=== PATIENT | male | born 1945 | race Caucasian/White ===

== ENCOUNTER 2017-02-19 16:29 | Observation (INO) | payer MEDICARE ==
[~2017-02-19] VITALS: Ht 177.8 cm; Wt 83.8 kg
[2017-02-19 16:39] VITALS: BP 160/75; PULSE 55; RESP 15; O2SAT 96
--- NOTE | 2017-02-19 16:54 | ED.REPORT ---
HPI-Chest Pain 40 and Over Date of Service Feb 19, 2017 ED Provider: Dr. Braxton Pt is a 71 y/o male w/ a hx of CAD s/p stentings, HTN, HLD, GERD, prior DVT, prostate CA s/p prostatectomy, presenting to the ED c/o intermittent chest discomfort onset 1 month ago. The patient has been experiencing intermittent burning chest pain which seems to be brought on with exertion. This has been apparently worked up by multiple physicians including a senior sharepoint architect for non- cardiac causes up until today. The last episode of chest pain was 2 days ago lasting about 30 seconds. During these episodes he experiences dyspnea but no diaphoresis. He went to his PCP in [facility] today and was prescribed nitroglycerin. They performed labs which were remarkable for an elevated CK-MB of 507 with a negative troponin and was called to come to the ED for a cardiac workup. He has been experiencing weakness, fatigue, and depression as well which he has been treated with his own purchased magnesium pills which seem to relieve his symptoms. He lives by himself. He does have a significant family history of sudden in his son and cardiac in his father. He is not the best historian. Nursing Notes Stated Complaint: CHEST PAIN Chief Complaint: Chest Pain Nursing Notes Reviewed: Yes Allergies: Coded Allergies: Nomrzqa-Xpt-Gdm Reductase Inhibitor (Unverified Allergy, Mild, 02/19/17) Scheduled ([brain force]) 1 CAPSULE PO DAILY Aspirin (Aspirin) 81 Mg Tablet 81 MG PO QAM Ezetimibe (Ezetimibe) 10 Mg Tablet 10 MG PO DAILY Fluticasone Propionate (Fluticasone Propionate) 50 Mcg/Actuation [place].susp 2 SPRAYS NS QAM Hydrochlorothiazide (Hydrochlorothiazide) 25 Mg Tablet 25 MG PO QAM Krill/Om3/Dha/Epa/Om6/Lip/Astx (Krill Oil 1,000 mg Softgel) 1 Each Capsule 1 EACH PO DAILY Omeprazole (Omeprazole) 20 Mg Capsule.dr 20 MG PO BID Scheduled PRN Magnesium Amino Acid Chelate (Magnesium) 100 Mg Tablet 1,050 MG PO DAILY PRN PRN For Spasm Nitroglycerin SL (Nitroglycerin SL) 0.4 Mg Tab.subl 0.4 MG SL Q5MIN PRN PRN For Chest Pain General Time Seen by MD: 16:54 Chief Complaint Chest pain Hx Obtained From: Patient Arrived By: Walk-in Sudden in Onset?: Yes Onset Occurred: More than a week ago... 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 Physical Exam Initial Vital Signs Vital Signs (First) Date Time Temp Pulse Resp B/P Pulse Ox O2 Delivery O2 Flow Rate FiO2 02/19/17 16:39 36.5 55 15 160/75 96 Room Air Initial VS: Reviewed, Vital signs abnormal Head / Eyes: Atraumatic, Normocephalic ENT: Mucous membranes moist, Conjunctiva normal Neck: Full range of motion Extremities: Vascular intact, Neuro intact, No swelling Skin: Warm, Dry, No cyanosis Neurologic: Alert, Oriented, Nonfocal Psychiatric: Mood/affect normal, Behavior normal, Normal thought content General/Constitutional: Awake, Alert, No acute distress, Well appearing, Cooperative, Not toxic appearing Respiratory / Chest: Breath sounds NL, Breath sounds = bilat, No respiratory distress, No rales, No rhonchi, No wheezing, No stridor, No chest tenderness Cardiovascular: Heart rate NL, Regular rhythm, Heart sounds NL, No gallop, No murmurs, No rubs Abdomen: Soft, Non-tender, No guarding, No rebound, No distention Interpretation & Diagnostics Lab Results Interpretation Result Diagram: 02/19/17 1649 02/19/17 1649 Test 02/19/17 16:49 02/19/17 17:23 White Blood Count 8.0th/mm3 (3.8-10.1) Red Blood Count 4.74mil/mm3 (4.40-5.80) Hemoglobin 15.0g/dL (13.8-17.2) Hematocrit 43.7% (41.0-50.0) Mean Corpuscular Volume 92.2fL (81-100) Mean Corpuscular Hemoglobin 31.6pg (27.0-35.0) Mean Corpuscular Hemoglobin Concent 34.3% (32.0-37.0) Red Cell Distribution Width 14.4% (12.3-15.4) Platelet Count 251bil/L (150-400) Neutrophils (%) (Auto) 63.1% (40-74) Lymphocytes (%) (Auto) 18.3% (14-46) Monocytes (%) (Auto) 10.9% (4-12) Eosinophils (%) (Auto) 6.0% (0-5) Basophils (%) (Auto) 1.4% (0-3) Sodium Level 139mEq/L (134-144) Potassium Level 3.6mEq/L (3.5-5.2) Chloride Level 100mEq/L (97-108) Carbon Dioxide Level 24mmol/L (18-29) Blood Urea Nitrogen 17mg/dL (8-27) Creatinine 1.08mg/dL (0.76-1.27) Estimat Glomerular Filtration Rate 72mL/min (>59) Glucose Level 103mg/dL (60-99) Calcium Level 9.1mg/dL (8.5-10.1) Magnesium Level 2.3mg/dL (1.6-2.6) Total Bilirubin 0.4mg/dL (0.0-1.2) Aspartate Amino Transf (AST/SGOT) 28U/L (0-50) Alanine Aminotransferase (ALT/SGPT) 17U/L (0-44) Alkaline Phosphatase 67U/L (25-160) Troponin T 0.013ug/L (0.0-0.011) Total Protein 8.0g/dL (6.4-8.4) Albumin 4.5g/dL (3.4-5.0) Hold Oconnell Top Tube Received (Received) ECG Interpretation ECG Interpretation: Sinus rhythm rate 51 LBBB No prior available for comparison Time: 18:01 Interpreted by: ED physician X-Ray Chest Interpretation Chest Xray Interpretation: IMPRESSION: 1. No acute cardiopulmonary disease. Dictated by: Júnior Tomlinson M.D. on 02/19/2017 at 17:05 Approved by: Júnior Tomlinson M.D. on 02/19/2017 at 17:09 View: Portable, 1 view Interpretation / Wet Read by: Interpret - Radiologist Re-Eval/Medical Decision Med Decision/Clinical Course 71-year-old male somewhat difficult historian with a known history of coronary disease recent exertional chest pain in an indeterminate troponin. Also has a left bundle branch block. Presently asymptomatic, plan is to follow troponins in the hospital and hopefully have an expedited stress test. Source of Hx: Old records Time of Eval: 18:34 Re-Evaluation/Progress Note: Pt rechecked. Informed pt of need for admission for cardiac workup. Pt understands and agrees with need for admission. All questions addressed. CODE STATUS: FULL CODE Consultation : Referral / Consult Name: Juliana Hope DO Consulted With: Hospitalist Call Returned at: 19:37 Managing Editor: Will see patient, Agrees with eval, Agrees with plan, Accepts admit Counseled Regarding: Diagnosis, Lab results, Need for admission Discharge & Departure Primary Impression: Chest pain with moderate risk for cardiac etiology Disposition: ADMITTED TO HOSPITAL Discharge Condition All VS Reviewed: Yes Condition: Stable Scribe Attestation Portions of this note were transcribed by Sher Akbar. I, Dr. Braxton personally performed the history, physical exam and medical decision-making; I reviewed and confirmed the accuracy of the information in the transcribed note. Flash Braxton MD Feb 19, 2017 16:54 SHER AKBAR Feb 19, 2017 17:00
[2017-02-19 16:56] LABS: BASOPHILS % (AUTO) 1.4 % (0-3); MONOCYTES % (AUTO) 10.9 % (4-12); Mean Corpuscular Hemoglobin 31.6 pg (27.0-35.0); Mean Corpuscular Volume 92.2 fL (81-100); NEUTROPHILS % (AUTO) 63.1 % (40-74); Platelet Count 251 bil/L (150-400)
--- NOTE | 2017-02-19 17:11 | DRSVH ---
PROCEDURE: X-RAY CHEST ONE VIEW, PORTABLE ([id number]) INDICATIONS: cp TECHNIQUE: One view of the chest was acquired. COMPARISON: None. FINDINGS: Surgical changes and devices: None. Lungs and pleura: Mild bilateral interstitial dominance, worse in lower lobes. No pleural effusions o r pneumothorax. Mediastinum: Mediastinal contours appear normal. Heart size is normal. Bones and chest wall: No suspicious bony lesions. Overlying soft tissues appear unremarkable. IMPRESSION: 1. No acute cardiopulmonary disease. Dictated by: Júnior Tomlinson M.D. on 02/19/2017 at 17:05 Approved by: Júnior Tomlinson M.D. on 02/19/2017 at 17:09
[2017-02-19 17:17] LABS: TROPONIN T 0.013 ug/L (0.0-0.011)
[2017-02-19 17:28] LABS: Magnesium 2.3 mg/dL (1.6-2.6)
[2017-02-19 18:41] VITALS: BP 174/85; PULSE 58; RESP 18; O2SAT 95
[2017-02-19] MEDS ORDERED: EZET10TA27 PO (19:43)
[2017-02-19] MEDS ORDERED: NITR0.4T6 SL (19:43)
[2017-02-19] MEDS ORDERED: Alum-Mag Hydrox-Simeth 30 mL Suspension PO PRN ×2 (19:45→20:05)
[2017-02-19] MEDS ORDERED: Ondansetron 2 mg/mL 2 mL Inj IVPUSH PRN ×2 (19:45→20:05)
[2017-02-19] MEDS ORDERED: HYDR25TA4 PO (19:46)
[2017-02-19] MEDS ORDERED: FLUT15.88 NS (19:46)
[2017-02-19] MEDS ORDERED: OMEP20CA11 PO (19:46)
[2017-02-19] MEDS ORDERED: ASPI-973 PO (19:46)
[2017-02-19] MEDS ORDERED: MAGN400T4 PO (19:50)
[2017-02-19] MEDS ORDERED: Polyethylene Glycol (PEG) 17 Gm Powder PO PRN (20:05)
[2017-02-19] MEDS ORDERED: MAGN100T5 PO (20:27)
[2017-02-19] MEDS ORDERED: KRIL1CAP PO (20:28)
[2017-02-19] MEDS ORDERED: [UNRECOGNIZED DRUG - OTHER] PO (20:29)
--- NOTE | 2017-02-19 20:35 | PCM.HPMED ---
Subjective Date of Service Feb 19, 2017 Primary Provider: Admitting Physician: Jax Lam MD Primary Care Physician: Get Calvillo MD Attending Physician: Jax Lam MD Admit Status: From the Emergency Department, Remote Telemetry Chief Complaint: chest pain History of Present Illness: Mr. Gaffney is a pleasant 71-year-old gentleman with a history of coronary artery disease status post stent placement, hyperlipidemia, hypertension, obstructive sleep apnea, history of prostate cancer s/p prostatectomy, and DVT of left leg, that presented to the emergency department as a transfer from his primary care for further evaluation of ongoing chest pain, with laboratory evidence of elevated CK-MB. He was admitted under observation status for further evaluation and treatment of his symptoms. - Hospital day 1 Mr. Gaffney states that he has been experiencing intermittent chest pain over the recent month, with increasing in frequency and severity over the latter half. He states that he has actually been chest pain-free over the recent week, and actually feels better today than previous days. The pain he was previously experiencing is described as an intermittent burning sensation, frequently associated with exertion. He denies any associated fever, chills, diaphoresis, acute vision changes, nausea, abdominal pain, headaches, dysphasia, or radiation into the neck or extremities. He states that his pain has been relieved quite well through the use of absorbable magnesium tablets, of which, he reports he takes approximately 15 pills per day. He does not have the supplementation with him at time of admission, cannot recall the exact dosage. At time of admission, he denies any recurrence of his chest pain or ongoing symptoms. Documentation received from the [facility] dated 02/19/2017 reveals the patient initially presented for a Medicare annual wellness visit and chronic care evaluation. During that visit, the patient was describing a sensation of fatigue and burning across his chest has been occurring over the recent month, with the sensation lasting 2-3 minutes and then spontaneously resolving. Per documentation, the patient described his symptoms more as "depression, weakness , and fatigue," rather than a chest pain or pressure typically described cardiac events. Laboratory results obtained through the outpatient clinic revealed an elevated CK-MB at 507 (range: 24-195) and CK-MB fraction 8.7 (range: 0.0-8.0). In the ED, patient states that he was completely asymptomatic. Initial vitals revealed T 36.5, pulse 55, are 15, BP 160/75, 96% on room air; initial labs showed no evidence of anemia, white count 8.0, blood joints within range, including magnesium at 2.3, LFTs within range, initial troponin T 0.013, glucose 103; EKG obtained rate of 51 in normal sinus rhythm with evidence of a left bundle branch block which has been reported to be chronic; CXR did not reveal any acute cardiopulmonary disease. No therapies were needed in the emergency department, as patient was asymptomatic. Patient was transferred to medical floor in stable condition. Review of Systems: Complete review of systems obtained, pertinent positives and negatives as noted in history of present illness Allergies Coded Allergies: Qadirhj-Dvv-Pao Reductase Inhibitor (Unverified Allergy, Mild, 02/19/17) Home Medications List obtained from documentation provided by the [facility]: Nitroglycerin 0.4 mg sublingual as needed for chest pain or shortness of breath Hydrochlorothiazide 25 mg tablets 1 tab daily Flonase daily Omeprazole 20 mg twice daily Zetia 10 mg daily Vitamin B12 Probiotic Fish oil Iron with unspecified milligrams Lisinopril 20 mg daily PMH Per documentation received from [facility]: Prostate cancer status post prostatectomy Left lower extremity DVT Acid reflux Hypercholesterolemia Hypertension Obstructive sleep apnea CAD s/p stent placement Surgical History Unspecified cardiac stent placement Colonoscopy Umbilical hernia repair with mesh Left knee replacement Prostatectomy secondary to prostate cancer Family History Patient reports extensive family history of coronary artery disease including grandparents and other extended members; also states history of early age onset stroke Patient denies any personal or family history of diabetes Social History 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 Hx Alcohol Use: Yes (infrequent) Hx Substance Use: Yes (extremely distant history of illicit substance use including cocaine, other IVDU) Smoking Status: Former Smoker (quit approximately 10 years ago; both inhalation and chew) Living Arrangement: Alone Exam Vital Signs Vital Sign - Last Date Time Temp Pulse Resp B/P Pulse Ox O2 Delivery O2 Flow Rate FiO2 02/19/17 18:41 58 18 174/85 95 02/19/17 16:39 36.5 Room Air Exam General: Alert and oriented 3; pleasant gentleman resting supine in bed in no acute distress HEENT: Atraumatic, normocephalic, sclera anicteric, membranes moist Neck: Full range of motion without pain Cardiac: Regular rate and rhythm at time of examination without any appreciable murmurs Respiratory: Equal airflow all coffey without any wheeze or rhonchi Abdomen: Soft, nontender, nondistended Extremities: No edema appreciated Skin: Warm and dry MSK: 5/5 strength 4/4 extremities at major joints of the shoulder, hip Neuro: Cranial nerves II-XII grossly intact, speech without slur, facial expressions equal and symmetric Psych: Appropriate mood, affect, and responses to questions; good insight and judgment Lab and Diagnostics Result Diagram: 02/19/17 1649 02/19/17 164 Assessment & Plan Mr. Gaffney is a pleasant 71-year-old gentleman with a history of coronary artery disease status post stent placement, hyperlipidemia, hypertension, obstructive sleep apnea, history of prostate cancer s/p prostatectomy, and DVT of left leg, that presented to the emergency department as a transfer from his primary care for further evaluation of ongoing chest pain, with laboratory evidence of elevated CK-MB. He was admitted under observation status for further evaluation and treatment of his symptoms. - Hospital day 1 Elevated cardiac enzymes, chronicity unknown, present on admission, under evaluation - Per outside documentation: CK-MB elevated at 507 - In ED, initial troponin 0.013 - Initial EKG revealed normal sinus rhythm with evidence of left bundle branch block, no acute ST T changes noted - We will trend troponin overnight + repeat CKMB - EKG in a.m. - Stress test in a.m.; nothing by mouth at midnight and hold appropriate medications - Morphine as needed - Initiate cardiac medications including beta blockade, daily aspirin; no patient has allergy to statins Chest pain, chronic, not present on admission, monitor - Patient states history of chest pain or the recent month, with resolution in the recent days - Was concern of elevated CK - We will continue to monitor; manage as above - Labs: thyroid, electrolytes, cardiac markers Restless leg syndrome, chronic, presumed stable - Patient reports "awful" leg cramps that keep him awake at night - Patient reports significant magnesium supplementation, but is unable to recall dosages - We will provide our magnesium while he is hospitalized, but patient is certainly welcome to bring his own supplementations to send pharmacy HTN, chronic, presumed stable - resume home medications when appropriate after reconciliation completed and as appropriate with pending stress test - enalapril 2.5mg IV push prn elev BP readings Hyperlipidemia, chronic, presumed stable - Lipid panel from [facility] dictated 02/13/2017: Total cholesterol 232, LDL 162, HDL 58, triglycerides 61 - Continue home zetia when appropriate PRN fever, bowel, nausea, pain Diet: Heart healthy; nothing by mouth at midnight 02/20/2017 GI: H2B DVT: Hep q8 Code: FULL CODE Patient status: Due to the severity of the same symptoms, risk of adverse events , and likely course of care, patient admitted as observation status with anticipated length of stay not exceeding 2 midnight Pain Evaluation: Adequate Pain Control GI Prophylaxis: H2 liliana VTE Prophylaxis: Sub-Q Heparin (Unfractionated) Resuscitation Status: CPR: Attempt Resuscitation Attending Statement The patient was seen and examined together with Dr. Hope on 02/19 and I agree with the history, exam and plan as outlined in the note above. Juliana Hope DO Feb 19, 2017 20:35 Jax Lam MD Feb 20, 2017 02:54
[2017-02-19 20:36] VITALS: BP 190/97; PULSE 51; RESP 18; O2SAT 96
[2017-02-19] MEDS ORDERED: Enalaprilat 1.25 mg/mL 2 mL Inj IVPUSH PRN (20:50)
[2017-02-19] MEDS ORDERED: MAGNESIUM AMINO ACID CHELATE PO PRN (21:00)
[2017-02-19 21:10] LABS: APPEARANCE,URINE CLEAR (CLEAR,HAZY); COLOR,URINE YELLOW (YELLOW); OCCULT BLOOD,URINE NEGATIVE (NEGATIVE); PH,URINE 7.5 (5.0-8.0); UROBILINOGEN,URINE NORMAL (NORMAL)
[2017-02-19] MEDS: Magnesium Chloride SR 64 mg ER24 Tablet PO SCH (21:51)
[2017-02-19 23:57] LABS: Creatine Kinase 304 U/L (21-232)
[2017-02-20] MEDS: Heparin 5,000 Unit/mL Inj SUBQ SCH ×3 (00:20→17:31)
[2017-02-20 00:23] VITALS: BP 145/75; PULSE 49; RESP 18; O2SAT 97
[2017-02-20 03:03] LABS: EOSINOPHILS % (AUTO) 10.1 % (0-5); MONOCYTES % (AUTO) 14.3 % (4-12); Mean Corpuscular Volume 91.1 fL (81-100); NEUTROPHILS % (AUTO) 54.3 % (40-74); Platelet Count 252 bil/L (150-400)
[2017-02-20 03:47] LABS: Magnesium 2.2 mg/dL (1.6-2.6); Phosphorus 2.9 mg/dL (2.5-4.9)
--- NOTE | 2017-02-20 05:51 | NUR ---
Admit to room 3016 @ 21:30 with chest pain. VS Hypertensive 160/75 sating 96% on RA. Pain 0/10, oriented to room and POC on whiteboard. no slip socks on for safety, home meds in pharmacy.
--- NOTE | 2017-02-20 05:53 | NUR ---
Med Rec completed by admit nurse Julia Cárdenas.
[2017-02-20 06:07] VITALS: PULSE 47
[2017-02-20 06:32] VITALS: BP 150/83; PULSE 49; RESP 18; O2SAT 94
[2017-02-20] MEDS ORDERED: LORazepam 1 mg Tablet PO PRN (07:55)
[2017-02-20] MEDS ORDERED: LORazepam 1 mg Tablet PO ONE (07:55)
[2017-02-20] MEDS: Magnesium Chloride SR 64 mg ER24 Tablet PO SCH (08:18)
[2017-02-20 09:26] VITALS: BP 136/77; PULSE 52; RESP 18; O2SAT 97
--- NOTE | 2017-02-20 10:16 | NUR ---
Case Management: REY given and explained. Felisha STEWART,RN
--- NOTE | 2017-02-20 11:51 | PCM.PNMED ---
Subjective Date of Service Feb 20, 2017 Subjective pt was restless this AM, anxious to go home, agreed on stress test, Has been bradycardic less than 50s, denied chest pain or lightheadedness no report on high degree blocks or pauses Exam Vital Signs Vital Sign - Last Date Time Temp Pulse Resp B/P Pulse Ox O2 Delivery O2 Flow Rate FiO2 02/20/17 09:26 36.6 52 18 136/77 97 Room Air Intake and Output 02/19/17 02/19/17 02/20/17 Cumulative From/Thru 15:00 23:00 07:00 02/19/17 16:39 - 02/19/17 20:36 Intake Total 0 ml 0 ml Balance 0 ml 0 ml Intake Oral 0 ml 0 ml Exam NAD, comfortably laying down on the bed no JVD, MMM, no LAD RRR, nl s1, s2 no mrg CTAB, no w,c S,ND,NT,normoactive BS+ warm, no edema, pulses 2/2 IVs and Medications Medications Reviewed: Medications were reviewed in detail Lab and Diagnostics Result Diagram: 02/20/17 0248 02/20/17 0248 Assessment & Plan Mr. Gaffney is a pleasant 71-year-old gentleman with a history of coronary artery disease status post stent placement, hyperlipidemia, hypertension, obstructive sleep apnea, history of prostate cancer s/p prostatectomy, and DVT of left leg, that presented to the emergency department as a transfer from his primary care for further evaluation of ongoing chest pain, with laboratory evidence of elevated CK-MB. He was admitted under observation status for further evaluation and treatment of his symptoms. acute, active Acute onset intermittent chest discomfort for, generalized weakness, POA, lab confirmed positive troponin and CK, EKG showed LBBB(reportedly old), concerning given hx of CAD 5yrs s/p stent, no close FU with card -stress test today, -nitro prn for acute CP -BB not given due to bradycardia, continue ASA, pt is allergic to statin, continue Zetia -consider card consult based on stress test today -[facility] [place] [facility] cardiac [facility] Sinus bradycardia, POA, concerning for sick sinus with possible ischemic event, monitor on telemetry for possible high degree blocks, pauses. chronic, stable Restless leg syndrome, chronic, presumed stable - Patient reports "awful" leg cramps that keep him awake at night - Patient reports significant magnesium supplementation, but is unable to recall dosages - We will provide our magnesium while he is hospitalized, but patient is certainly welcome to bring his own supplementations to send pharmacy HTN, chronic, presumed stable - resume home medications when appropriate after reconciliation completed and as appropriate with pending stress test - enalapril 2.5mg IV push prn elev BP readings Hyperlipidemia, chronic, presumed stable - Lipid panel from [facility] dictated 02/13/2017: Total cholesterol 232, LDL 162, HDL 58, triglycerides 61 - Continue home zetia when appropriate PRN fever, bowel, nausea, pain Diet: Heart healthy; nothing by mouth at midnight 02/20/2017 GI: H2B DVT: Hep q8 Code: FULL CODE Patient status: likely today or tomorrow GI Prophylaxis: H2 liliana VTE Prophylaxis: Sub-Q Heparin (Unfractionated) VTE Mechanical Devices: Venous Foot Pump Resuscitation Status: CPR: Attempt Resuscitation Time spent 35 minutes Uma Dietrich MD Feb 20, 2017 11:46
--- NOTE | 2017-02-20 12:40 | NUR ---
OFF UNIT Pt off unit to stress test, certified master safe technician aware. Addendum: 02/20/17 at 1524 by DELGADO CHAUDHARI RN Pt back on unit at 1500, Sweepery put back on, bus monitor aware.
--- NOTE | 2017-02-20 15:47 | DRSVH ---
PROCEDURE: 1 DAY PHARMACOLOGICAL STRESS TEST Rest and pharmacological stress myocardial perfusion SPECT with gated imaging and ejection fraction RADIOPHARMACEUTICAL: 8.9 mCi Tc-99m tetrafosmin IV at rest and 24.8 mCi Tc-99m tetrafosmin IV at peak effect of pharmacological stress. A hdx-nqu-whugzyve was performed. INDICATIONS: CHEST PAIN TECHNIQUE: Radiopharmaceutical was injected at peak stress test, and also at rest. SPECT images wer e obtained. SPECT myocardial perfusion images were displayed in short axis, horizontal long axis, an d vertical long axis views. Gated images were reviewed using [employer] software. COMPARISON: None. CARDIAC STRESS: A pharmacologic stress test was performed under the supervision of an attending staff, using an infus ion of [employer]. Hemodynamic data: There is normal blood pressure and heart rate response to pharmacologic stress. Symptoms: The patient denied anginal chest pain. Aminophylline: Not given EKG: No diagnostic changes of ischemia; rare PVCs are present. Left bundle branch block is present. FINDINGS: Raw data: There is good myocardial uptake of radiotracer. No significant motion artifacts. Left ventricle function: Gated images demonstrate diffuse hypokinesis of the left ventricle. No bravo sient ischemic dilation visually. Left ventricle resting end diastolic volume is 130 mL. Left ventr icle stress ejection fraction is 39%; normal range is above 45%. Myocardial perfusion: There is a small fixed defect of perfusion seen on both stress and rest images within the apex. There is otherwise normal distribution of activity in the right and left ventricula r myocardium. No fixed or reversible perfusion defects. IMPRESSION: 1. Small apical infarct versus apical thinning. 2. No reversible perfusion defects to indicate myocardial ischemia. 3. Diffusely hypokinetic left ventricle with ejection fraction of 39%. Dictated by: Stanislaw Chaudhry M.D. on 02/20/2017 at 15:42 Approved by: Stanislaw Chaudhry M.D. on 02/20/2017 at 15:46
[2017-02-20 17:47] VITALS: BP 151/77; PULSE 61; RESP 18; O2SAT 97
--- NOTE | 2017-02-20 18:01 | NUR ---
Activity/pain Pt up ind in room, tolerating activity well with no c/o CP/SOB or distress. Tele remains in place. Bed in lowest, locked position and call light in reach.
[2017-02-20 19:51] VITALS: BP 151/71; PULSE 64; RESP 18; O2SAT 98
[2017-02-21] MEDS: Heparin 5,000 Unit/mL Inj SUBQ SCH ×2 (01:31→09:32)
[2017-02-21 03:54] VITALS: BP 139/74; PULSE 50; RESP 16; O2SAT 99
[2017-02-21 06:13] VITALS: PULSE 54
--- NOTE | 2017-02-21 06:37 | NUR ---
Uneventful Night Pt denies chest pain or pressure, denies n/v/SOB/Fever/chills. Tele: SR to SR 60S to 48. BP stable. Sleeping most of night comfortably.
[2017-02-21 09:06] VITALS: PULSE 60
[2017-02-21] MEDS ORDERED: LISI10TA PO (09:28)
[2017-02-21] MEDS ORDERED: METO25TA6 PO (09:28)
[2017-02-21] MEDS: Magnesium Chloride SR 64 mg ER24 Tablet PO SCH (09:31)
[2017-02-21 09:39] VITALS: BP 130/74; PULSE 60; RESP 16; O2SAT 96
--- NOTE | 2017-02-21 12:26 | NUR ---
Social Work: Initial Assessment Data: See initial assessment. Patient is a 71 year old male who was admitted on 02/19/17 for chest pain per H&P. Patient's insurance is Medicare Complete HMO and PCP is Dr. Get Calvillo. EMR reviewed. SW met with patient to discuss discharge planning. SW role explained. Patient is alert & oriented x3. Patient resides at home alone in [place] in a home that has 10 steps at entrance. Patient remains I with ADLs. Patient states that he does drive and has a POV. Patient states that he [facility] Patient states that he has also received outpatient PT while living in [place], [place]. Patient denies having residential care insurance. Patient denies having a DPOA or AD. SW offered patient AD resources however, patient has declined. Patient states that he does have VA benefits but states that he is unable to utilize them due to living too far from a major city. Patient states that upon discharge, he will drive himself home. SW provided a discharge planning checklist booklet to pt and encouraged him to call with any questions. Phone number provided. SW will continue to follow. Assessment: Home with no needs at this time. Plan: Patient to likely discharge home when medically stable. No anticipated DC needs at this time. SW will continue to follow. MIRTHA Tafoya Addendum: 02/21/17 at 1238 by NELSON GARZON SS Amended: Links added.
--- NOTE | 2017-02-21 12:46 | DRSVH ---
[facility] [address] [place] [address] Echocardiogram Report Name: JAMIE IVY Roberto e: 02/21/2017 Height: 70 in Hospital Exam Location: [facility] Weight: 185 lb Gender: Male BSA: 2.0 m2 : 1945 Age: 71 yrs BP: 139/74 mmHg Reason For Study: Chest pain Ordering Physician: Performed By: Shakira Gary Interpretation Summary 1. Normal left ventricular size with mild proximal septal thickening and normal systolic function with an estimated EF of 55 to 60% 2. Normal right ventricular size and systolic function. The estimated right atrial pressure is low. 3. No evidence for significant valvular pathology There is no old study for comparison Procedure: A two-dimensional transthoracic echocardiogram with color flow and Doppler was performed. The study quality was technically adequate. There is no prior echocardiogram noted for this patient. The patient was in normal sinus rhythm during the exam. The patient had a bundle branch block rhythm during the exam. Left Ventricle: The left ventricle is normal in size. There is mild proximal septal thickening noted. The ejection fraction is estimated to be 55 -60%. Septal motion is consistent with conduction abnormality. Assessment of diastolic parameters indicates a relaxation abnormality of the left ventricle, consistent with normal filling pressures. Right Ventricle: The right ventricle is normal in size and function. Atria: Both atria are normal in size. There is no Doppler evidence for an interatrial shunt. Mitral Valve: The mitral valve is normal in structure and function. There is trace mitral regurgitation. Aortic Valve: The aortic valve is trileaflet. The aortic valve opens well. The aortic valve is mildly calcified. No aortic regurgitation is present. Tricuspid Valve: The tricuspid valve is normal in structure and function. No tricuspid regurgitation. Pulmonary artery pressures cannot be estimated because of the lack of a measurable TR jet velocity. Pulmonic Valve: The pulmonic valve is normal in structure and function. There is a trace or physiologic amount of pulmonic regurgitation. Great Vessels: The aortic root is normal size. The ascending aorta is mildly enlarged. The aortic arch is normal in size. The ascending aorta diameter is 3.7 cm. The pulmonary artery is not well visualized, but is probably normal size. The IVC is of normal diameter and collapses greater than 50% with a sniff. This suggests a low right atrial pressure of 3 mm Hg. Pericardium/ Pleura There is no pericardial effusion. There is no pleural effusion. MMode/2D Measurements & Calculations LVIDd: 4.9 cm RA long axis LVOT diam: 2.1 cm LVIDs: 3.7 cm LA A2 area: 20.8 cm AoV Opening FS: 24.5 % LA A4 area: 18.6 cm RA area EPSS: 0.55 cm LA length (vol) Ao root diam IVSd: 1.2 cm : 16.9 cm LVPWd: 0.89 cm LA vol: 63.2 ml RA vol Aortic Jxn: 2.6 cm LA vol index : 50.0 ml asc Aorta Diam RA : 24.8 mm2 Ao Arch Diam (Prox IVC diam: 1.00 cm Trans): 2.8 cm LV garcia. diameter/BSA LV sys. diameter/BSA RVD1 (basal) RVD2 (mid): 2.8 cm (cm/m^2): 2.4 (cm/m^2): 1.8 TAPSE: 2.8 cm Doppler Measurements & Calculations Ao V2 max MV E max shiraz MV E/A: 0.53 PA V2 max : 173.4 cm/sec : 37.3 cm/sec Med Peak E' Shiraz : 107.0 cm/sec Ao max PG MV A max shiraz PA mean PG : 12.0 mmHg : 69.7 cm/sec E/E' med: 12.3 Ao mean PG MV P1/2t: 94.4 msec Lat Peak E' Shiraz PA Accel Time : 0.16 sec LVOT Max Shiraz E/E' lat: 6.5 : 104.6 cm/sec E/e' average: 9.4 MARILOU(I,D): 2.5 cm sev ratio MV dec time MV P1/2t max shiraz Ao V2 mean LV V1 max PG : 0.32 sec : 106.4 cm/sec MVA(P1/2t): 2.3 cm2 Ao V2 VTI: 32.0 cm LV V1 VTI MARILOU(V,D): 2.2 cm2 : 22.3 cm PA V2 mean MARILOU indexed to BSA : 66.1 cm/sec (cm^2/m^2): 1.2 Reading Physician:12:45 PM
[2017-02-21] MEDS ORDERED: ASPI-973 PO (13:51)
--- NOTE | 2017-02-21 13:56 | PCM.DIMED ---
Discharge Instructions Date of Service Feb 21, 2017 Dates of Hospitalization Feb 19, 2017 at 19:47 Discharge Diagnosis Discharge Diagnosis acute dx Acute onset intermittent chest discomfort in the setting of CAD s/p stents, ruled out ACS chronic dx Restless leg syndrome, chronic, presumed stable HTN Hyperlipidemia Diet Discharge Diet: Low fat, Low Sodium, Heart Healthy Activity Discharge Activity: No restrictions Call your provider Call your provider for: Fever or Chills, Chest pain Patient Instructions Patient Instructions You were hospitalized with chest pain. you underwent several studies and blood works, didn't suggest that you have active heart attack. However, given your previous heart disease, you were recommended to follow up with Cardiology. Please follow up with on next Friday 02/23, you likely need to proceed cardiac cauterization. Please take aspirin 81mg, Metoprolol 25mg twice a day, [id number] daily. Please stop taking Hydrochlorothiazide Please arrange appointment with new primary doctor, request transfer of record from [facility]. Follow-up Provider: Julia Canales MD Follow-up with PCP in: 1 week Provider: ANTWON STEPHEN CLIN Follow-up in: 2 weeks Uma Dietrich MD Feb 21, 2017 13:56
[2017-02-21 14:13] VITALS: BP 135/82; PULSE 52; RESP 16; O2SAT 97
--- NOTE | 2017-02-21 14:14 | CONS ---
[address] [address] CONSULTATION REPORT PATIENT: JAMIE IVY : 1945 MR#: [id number] ADMIT: 02/19/2017 JOB ID: [id number] DATE OF SERVICE: 02/21/2017 CHIEF COMPLAINT: I was asked by the hospital team to consult on this patient given the atypical chest pain and borderline elevated troponins that have all normalized. HISTORY OF PRESENT ILLNESS: The patient is a 71-year-old man with a history of coronary disease. He says he had a stent placed in [place], [place], approximately eight years ago. He is also treated for hyperlipidemia and hypertension as well as obstructive sleep apnea. He used to live down in the [place] area but moved up here and was living with family members up in [place] and has been seen at [place] by a primary care provider there. This is with the [facility]. He says that he is very busy. 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 He says that with very high levels of exertion, he will notice burning discomfort that starts at his left shoulder and goes across his chest. He has had a few intermittent episodes of this but more commonly this occurs with high levels of activity. He went to see his primary care provider and mentioned this, and they sent some labs and found mildly elevated troponin and sent him over here. Since he has been here, his troponins have gone to zero. He has no chest pain, no chest pressure at this time. He denies any problems with orthopnea, PND, lower extremity edema. He denies palpitations, presyncope, syncope. He has been having a great deal of cramping in his legs and has been taking increased magnesium which not only helped with the cramping in his legs but also helped with some of the chest symptoms. His primary care provider had referred him to see another pastoral assistant. However, he was brought here and now is seeing myself in consultation. PAST MEDICAL HISTORY/PROBLEM LIST: 1. History of a DVT in the past. 2. History of GERD. 3. History of obstructive sleep apnea. 4. History of coronary disease, status post stent placement to unknown vessel. Patient does not have the record. Hospital was in [place], [place]. HOME MEDICATIONS: Include: 1. Nitroglycerin which was recently prescribed. He has not filled it as yet. 2. Hydrochlorothiazide 25 mg daily. 3. Omeprazole 20 mg b.i.d. 4. Zetia 10 mg daily. 5. He was not taking aspirin but has been instructed to do so now. 6. He does not recall if he was ever on clopidogrel. ALLERGIES: STATINS. Thus he is on Zetia. SOCIAL HISTORY: Infrequent alcohol use. Former smoker. Quit 10 years ago. FAMILY HISTORY: Grandparents and extended family members who have some coronary disease. No family history of early coronary disease. REVIEW OF SYSTEMS: Overall health: No fevers, chills, night sweats, or weight loss. GI: No problems with ulcers or blood in his stool but does have GERD. : No dysuria, no hematuria. Pulmonary: No history of lung disease, shortness of breath. Cardiac: As per HPI. Denies orthopnea, PND, lower extremity edema, palpitations, presyncope, syncope. Derm: No rashes, skin breakdown. Heme: No easy bruising or bleeding. Neuro: No history of stroke or TIA. Musculoskeletal: Cramping of legs, some shoulder issues. Ophtho: No acute vision changes. Psych: No acute issues. ENT: No difficultly swallowing. No sore throat. All other review of systems on a 12-point review systems negative. PHYSICAL EXAMINATION: Blood pressure 130/74. He is afebrile. Heart rate 60. Sats are 96% on room air. General: In no acute distress. Speaking in full sentences without apparent shortness of breath. Head and neck exam: Normocephalic, atraumatic. Heart exam: Regular rate and rhythm. I do not appreciate murmurs, gallops, rubs. EKG shows left bundle branch block. Lungs sound clear. Back: No CVA tenderness to palpation. Abdomen: Soft, nontender. Extremities: Warm, no edema, 2+ distal pulses. Vascular: No carotid bruits appreciated. Skin without breakdown appreciated. Neuro: Alert, oriented x3. Gait is not tested. ENT: Mucous membranes moist. Hearing grossly intact. Optho: Vision grossly intact. Psych: Apprpriate mood and affect LABS: As noted regarding the troponins. Sodium 137, potassium 3.7, chloride and bicarb 100, 25 respectively. BUN and creatinine 14 and 1.04. Troponin now within normal limits. The 1st troponin was in the indeterminate range. Free T4 is within normal limits. Hematology shows a white count 6.6, H and H 15.3, 45, platelets of 252,000. Echocardiogram, read by myself, shows normal LV systolic function. The anterior septum moves well. The stress test was read as possible apical infarct versus apical thinning artifact. Per review, this is a fixed defect which might all be related to the left bundle branch block. The patient did not walk on a treadmill and this is likely because of his left bundle branch block. IMPRESSION: The patient has a history of coronary stenting to an unknown vessel quite a few years ago. He is a very active man and describes some exertional chest burning that only occurs with high levels of exertion. He has no problems now. His stress test is a low risk study, but he does have a fixed defect likely related to the left bundle branch block. PLAN: 1. I told him that most of his studies were low risk. However, I am some still somewhat concerned about the fact that at high levels of exertion he is getting a burning discomfort across his chest. He was given a prescription for nitroglycerin by his primary care provider and he has yet to fill it but would plan on filling it at home. 2. Because of his symptoms, I did offer him a chance to stay here and have a cardiac catheterization this Thursday. However, he is not having any acute issues at this time and preferred to go home with the idea that he will fill his nitroglycerin and use it if needed, but actually avoid symptoms that bring on the discomfort such as very heavy exertion. With that in mind, I have asked him to take aspirin, take his medicines regularly, carry the nitroglycerin and to avoid heavy exertion. 3. My plan is to have him come and see me on Thursday afternoon, February 23, at approximately 2:30, and we will see how he is doing and discuss setting up an outpatient cardiac catheterization. The patient prefers to go down this path and understands that if he develops active chest pain, chest pain that does not go away with rest or with nitroglycerin, he needs to immediately go to the hospital. I spent 60 minutes reviewing the patient's old records, reviewing the stress test, speaking with the patient, examining him, discussing my concerns and discussing a plan. As noted, the patient prefers to go home and I have advised him to avoid heavy activity until we discuss things further in followup and potentially set up an outpatient cardiac catheterization. ASHANTI
--- NOTE | 2017-02-21 14:47 | NUR ---
Discharge Patient given discharge orders. Patient given medication list with written times of when next dose is due. Patient given hard copies of prescriptions. Patient given informational packets. Patient given follow up instructions. Assisted patient to main entrance.
--- NOTE | 2017-02-21 15:01 | PCM.DC.MED ---
Discharge Summary Date of Service Feb 21, 2017 Dates of Hospitalization Date of Hospital Admission Feb 19, 2017 at 19:47 Date of Discharge: Feb 21, 2017 Providers: Admitting Physician: Jax Lam MD Primary Care Physician: Get Calvillo MD Attending Physician: mUa Godoy MD Diagnosis at Time of Discharge Diagnosis at Time of Discharge acute dx Acute onset intermittent chest discomfort in the setting of CAD s/p stents, ruled out ACS chronic dx Restless leg syndrome, chronic, presumed stable HTN Hyperlipidemia Consultations Cardiology, Procedures Cardiac Echo Impression Echocardiogram Report Name: JAMIE GAFFNEY TStudy Roberto e: 02/21/2017 Height: 70 in Hospital Exam Location: [facility] Weight: 185 lb Gender: Male BSA: 2.0 m2 : 1945 Age: 71 yrs BP: 139/74 mmHg Reason For Study: Chest pain Ordering Physician: Performed By: Shakira Gary Interpretation Summary 1. Normal left ventricular size with mild proximal septal thickening and normal systolic function with an estimated EF of 55 to 60% 2. Normal right ventricular size and systolic function. The estimated right atrial pressure is low. 3. No evidence for significant valvular pathology There is no old study for comparison Procedure: A two-dimensional transthoracic echocardiogram with color flow and Doppler was performed. The study quality was technically adequate. There is no prior echocardiogram noted for this patient. The patient was in normal sinus rhythm during the exam. The patient had a bundle branch block rhythm during the exam. Left Ventricle: The left ventricle is normal in size. There is mild proximal septal thickening noted. The ejection fraction is estimated to be 55 -60%. Septal motion is consistent with conduction abnormality. Assessment of diastolic parameters indicates a relaxation abnormality of the left ventricle, consistent with normal filling pressures. Right Ventricle: The right ventricle is normal in size and function. Atria: Both atria are normal in size. There is no Doppler evidence for an interatrial shunt. Mitral Valve: The mitral valve is normal in structure and function. There is trace mitral regurgitation. Aortic Valve: The aortic valve is trileaflet. The aortic valve opens well. The aortic valve is mildly calcified. No aortic regurgitation is present. Tricuspid Valve: The tricuspid valve is normal in structure and function. No tricuspid regurgitation. Pulmonary artery pressures cannot be estimated because of the lack of a measurable TR jet velocity. Pulmonic Valve: The pulmonic valve is normal in structure and function. There is a trace or physiologic amount of pulmonic regurgitation. Great Vessels: The aortic root is normal size. The ascending aorta is mildly enlarged. The aortic arch is normal in size. The ascending aorta diameter is 3.7 cm. The pulmonary artery is not well visualized, but is probably normal size. The IVC is of normal diameter and collapses greater than 50% with a sniff. This suggests a low right atrial pressure of 3 mm Hg. Pericardium/ Pleura There is no pericardial effusion. There is no pleural effusion. Brief History HPI obtained by on 02/19 Mr. Gaffney is a pleasant 71-year-old gentleman with a history of coronary artery disease status post stent placement, hyperlipidemia, hypertension, obstructive sleep apnea, history of prostate cancer s/p prostatectomy, and DVT of left leg, that presented to the emergency department as a transfer from his primary care for further evaluation of ongoing chest pain, with laboratory evidence of elevated CK-MB. He was admitted under observation status for further evaluation and treatment of his symptoms. - Hospital day 1 Mr. Gaffney states that he has been experiencing intermittent chest pain over the recent month, with increasing in frequency and severity over the latter half. He states that he has actually been chest pain-free over the recent week, and actually feels better today than previous days. The pain he was previously experiencing is described as an intermittent burning sensation, frequently associated with exertion. He denies any associated fever, chills, diaphoresis, acute vision changes, nausea, abdominal pain, headaches, dysphasia, or radiation into the neck or extremities. He states that his pain has been relieved quite well through the use of absorbable magnesium tablets, of which, he reports he takes approximately 15 pills per day. He does not have the supplementation with him at time of admission, cannot recall the exact dosage. At time of admission, he denies any recurrence of his chest pain or ongoing symptoms. Documentation received from the [facility] dated 02/19/2017 reveals the patient initially presented for a Medicare annual wellness visit and chronic care evaluation. During that visit, the patient was describing a sensation of fatigue and burning across his chest has been occurring over the recent month, with the sensation lasting 2-3 minutes and then spontaneously resolving. Per documentation, the patient described his symptoms more as "depression, weakness , and fatigue," rather than a chest pain or pressure typically described cardiac events. Laboratory results obtained through the outpatient clinic revealed an elevated CK-MB at 507 (range: 24-195) and CK-MB fraction 8.7 (range: 0.0-8.0). In the ED, patient states that he was completely asymptomatic. Initial vitals revealed T 36.5, pulse 55, are 15, BP 160/75, 96% on room air; initial labs showed no evidence of anemia, white count 8.0, blood joints within range, including magnesium at 2.3, LFTs within range, initial troponin T 0.013, glucose 103; EKG obtained rate of 51 in normal sinus rhythm with evidence of a left bundle branch block which has been reported to be chronic; CXR did not reveal any acute cardiopulmonary disease. No therapies were needed in the emergency department, as patient was asymptomatic. Patient was transferred to medical floor in stable condition. Hospital Course Mr. Gaffney is a pleasant 71-year-old gentleman with a history of coronary artery disease status post stent placement, hyperlipidemia, hypertension, obstructive sleep apnea, history of prostate cancer s/p prostatectomy, and DVT of left leg, that presented to the emergency department as a transfer from his primary care for further evaluation of ongoing chest pain, with laboratory evidence of elevated CK-MB. He was admitted under observation status for further evaluation and treatment of his symptoms. Brief hospital course Pt was admitted to rule out ACS. Given previous CAD s/p stent, positive trop+, pt underwent stress test, which showed small apical defect but no reversible defect. EKG was unchanged from prior LBBB. TTE showed normal EF, no focal WMA, valvular dz. pt was started on aspirin, metoprolol, lisinopril. Pt was recommended elective cardiac cath tomorrow as intpatient by , however, pt refused. Given stable condition without active chest pain, no signs of ACS, pt was discharged to home. Plan is to follow up with in 2days in the clinic, and have elective cath in near future. Of note, BP regimen changed as BB , ACEI started. HCTZ stopped on d/c. As patient is willing to transfer his care from [facility], information given to establish care at [facility]. acute, active Acute onset intermittent chest discomfort for, generalized weakness, POA, lab confirmed positive troponin and CK, EKG showed LBBB(reportedly old), concerning given hx of CAD 5yrs s/p stent, no close FU with card -stress test today, -nitro prn for acute CP -BB not given due to bradycardia, continue ASA, pt is allergic to statin, continue Zetia -consider card consult based on stress test today -[facility] where [facility] cardiac [facility] Sinus bradycardia, POA, concerning for sick sinus with possible ischemic event, monitor on telemetry for possible high degree blocks, pauses. chronic, stable Restless leg syndrome, chronic, presumed stable - Patient reports "awful" leg cramps that keep him awake at night - Patient reports significant magnesium supplementation, but is unable to recall dosages - We will provide our magnesium while he is hospitalized, but patient is certainly welcome to bring his own supplementations to send pharmacy HTN, chronic, presumed stable - resume home medications when appropriate after reconciliation completed and as appropriate with pending stress test - enalapril 2.5mg IV push prn elev BP readings Hyperlipidemia, chronic, presumed stable - Lipid panel from Kai dictated 02/13/2017: Total cholesterol 232, LDL 162, HDL 58, triglycerides 61 - Continue home zetia when appropriate PRN fever, bowel, nausea, pain Diet: Heart healthy; nothing by mouth at midnight 02/20/2017 GI: H2B DVT: Hep q8 Code: FULL CODE Patient status: likely today or tomorrow Exam Vital Signs (Last) Date Time Temp Pulse Resp B/P Pulse Ox O2 Delivery O2 Flow Rate FiO2 02/21/17 14:13 36.7 52 16 135/82 97 Room Air Exam pt was examined on the day of d/c Test 02/19/17 16:49 02/19/17 17:23 02/19/17 20:35 02/19/17 23:19 Total Bilirubin 0.4mg/dL (0.0-1.2) Aspartate Amino Transf (AST/SGOT) 28U/L (0-50) Alanine Aminotransferase (ALT/SGPT) 17U/L (0-44) Alkaline Phosphatase 67U/L (25-160) Total Protein 8.0g/dL (6.4-8.4) Albumin 4.5g/dL (3.4-5.0) Hold [place] Top Tube Received (Received) Urine Color Yellow (YELLOW) Urine Appearance Clear (CLEAR,HAZY) Urine pH 7.5 (5.0-8.0) Urine Specific [place] 1.010 (1.003-1.035) Urine Protein Negativemg/dL (NEG,TRACE) Urine Glucose (UA) Negativemg/dL (NEGATIVE) Urine Ketones Negativemg/dL (NEGATIVE) Urine Occult Blood Negative (NEGATIVE) Urine Nitrite Negative (NEGATIVE) Urine Bilirubin Negative (NEGATIVE) Urine Urobilinogen Normalmg/dL (NORMAL) Urine Leukocyte Esterase Negative (NEGATIVE) Urine RBC 0-2/hpf (0-2) Urine WBC 0-5/hpf (0-5) Urine Epithelial Cells Occasional/hpf (NONE-MOD) Urine Crystals None seen (NONE SEEN) Urine Bacteria None/hpf (NONE-FEW) Urine Hyaline Casts None/lpf (NONE) Urine Granular Casts None seen (NONE SEEN) Urine Waxy Casts None seen (NONE SEEN) Urine Red Blood Cell Casts None seen (NONE SEEN) Urine White Blood Cell Casts None seen (NONE SEEN) Urine Mucus None seen (None Seen) Urine Trichomonas None seen (NONE SEEN) Urine Yeast None (NONE SEEN) Urinalysis Comment None Urine Culture Reflexed Not indicated Total Creatine Kinase 304U/L (21-232) Creatine Kinase MB 5.3ng/mL (0.0-10.4) Creatine Kinase MB % % (0.0-5.0) Test 02/20/17 02:48 02/20/17 08:35 White Blood Count 6.6th/mm3 (3.8-10.1) Red Blood Count 4.94mil/mm3 (4.40-5.80) Hemoglobin 15.3g/dL (13.8-17.2) Hematocrit 45.0% (41.0-50.0) Mean Corpuscular Volume 91.1fL (81-100) Mean Corpuscular Hemoglobin 31.0pg (27.0-35.0) Mean Corpuscular Hemoglobin Concent 34.0% (32.0-37.0) Red Cell Distribution Width 14.4% (12.3-15.4) Platelet Count 252bil/L (150-400) Neutrophils (%) (Auto) 54.3% (40-74) Lymphocytes (%) (Auto) 19.1% (14-46) Monocytes (%) (Auto) 14.3% (4-12) Eosinophils (%) (Auto) 10.1% (0-5) Basophils (%) (Auto) 2.0% (0-3) Sodium Level 137mEq/L (134-144) Potassium Level 3.7mEq/L (3.5-5.2) Chloride Level 100mEq/L (97-108) Carbon Dioxide Level 25mmol/L (18-29) Blood Urea Nitrogen 14mg/dL (8-27) Creatinine 1.04mg/dL (0.76-1.27) Estimat Glomerular Filtration Rate 75mL/min (>59) Glucose Level 114mg/dL (60-99) Calcium Level 9.1mg/dL (8.5-10.1) Phosphorus Level 2.9mg/dL (2.5-4.9) Magnesium Level 2.2mg/dL (1.6-2.6) Thyroid Stimulating Hormone (TSH) 6.290uIU/mL (0.450-4.500) Free Thyroxine 1.27ng/dL (0.82-1.77) Troponin T 0.010ug/L (0.0-0.011) Discharge Medications Discharge Medications ([brain force]) 1 CAPSULE PO DAILY (Reported) Aspirin (Aspirin) 81 Mg Tablet 81 MG PO QAM Prescribed by: UMA GODOY MD Ezetimibe (Ezetimibe) 10 Mg Tablet 10 MG PO DAILY (Reported) Fluticasone Propionate (Fluticasone Propionate) 50 Mcg/Actuation [place].susp 2 SPRAYS NS QAM (Reported) Krill/Om3/Dha/Epa/Om6/Lip/Astx (Krill Oil 1,000 mg Softgel) 1 Each Capsule 1 EACH PO DAILY (Reported) Lisinopril (Lisinopril) 10 Mg Tablet 10 MG PO DAILY Prescribed by: UMA GODOY MD Metoprolol Tartrate (Metoprolol Tartrate) 25 Mg Tablet 25 MG PO BID Prescribed by: UMA GODOY MD Omeprazole (Omeprazole) 20 Mg Capsule.dr 20 MG PO BID (Reported) As needed Magnesium Amino Acid Chelate (Magnesium) 100 Mg Tablet 1,050 MG PO DAILY PRN PRN For Spasm (Reported) Nitroglycerin SL (Nitroglycerin SL) 0.4 Mg Tab.subl 0.4 MG SL Q5MIN PRN PRN For Chest Pain (Reported) Followup Plan Disposition: home Discharge Diet: Low fat, Low Sodium, Heart Healthy Discharge Activity: No restrictions Patient Instructions You were hospitalized with chest pain. you underwent several studies and blood works, didn't suggest that you have active heart attack. However, given your previous heart disease, you were recommended to follow up with Cardiology. Please follow up with on next Friday 02/23, you likely need to proceed cardiac cauterization. Please take aspirin 81mg, Metoprolol 25mg twice a day, [id number] daily. Please stop taking Hydrochlorothiazide Please arrange appointment with new primary doctor, request transfer of record from [facility]. Follow-up Provider: Julia Canales MD Follow-up with PCP in: 1 week Provider: ANTWON STEPHEN CLIN Follow-up in: 2 weeks Time spent 65min Uma Godoy MD Feb 21, 2017 15:01
== END 2017-02-21 14:53 | disposition home or self-care (01) ==
LOC: SED 16:29 → MPC 19:47
PROVIDERS: ADMIT Hospitalist; ATTEND Hospitalist
DX: R07.89 Other chest pain (principal); I25.10 Atherosclerotic heart disease of native coronary artery without angina pectoris; R79.89 Other specified abnormal findings of blood chemistry; I10 Essential (primary) hypertension; G25.81 Restless legs syndrome; I44.7 Left bundle-branch block, unspecified; R00.1 Bradycardia, unspecified; E78.5 Hyperlipidemia, unspecified; G47.33 Obstructive sleep apnea (adult) (pediatric); K21.9 Gastro-esophageal reflux disease without esophagitis; Z85.46 Personal history of malignant neoplasm of prostate; Z95.5 Presence of coronary angioplasty implant and graft; Z87.891 Personal history of nicotine dependence; Z86.718 Personal history of other venous thrombosis and embolism; Z82.49 Family history of ischemic heart disease and other diseases of the circulatory system
CPT/HCPCS: 36415; 71010; 78452; 80048; 80053; 81000; 82550; 82553; 83735; 84100; 84439; 84443; 84484; 85025; 93005; 93017; 96372; 99285; A9502; C8929; G0378; J1644; J2785

== ENCOUNTER 2017-03-11 00:28 | Day surgery (SDC) | payer MEDICARE ==
[~2017-03-11] VITALS: Ht 177.8 cm; Wt 84.0 kg
[2017-03-11] VITALS (18 sets, daily range): BP systolic 111–169; BP diastolic 62–91; PULSE 42–60; RESP 10–20; O2SAT 96–99
[~2017-03-11 00:28] MED LIST: ASPI-973 PO; FLUT15.88 NS; KRIL1CAP PO; LISI10TA PO; MAGN100T5 PO; METO25TA6 PO; NITR0.4T38 SL; OMEP20CA11 PO
[2017-03-11] MEDS ORDERED: 0.9% Sodium Chloride 1,000 ML IV SCH (07:00)
[2017-03-11 07:12] LABS: BASOPHILS % (AUTO) 1.6 % (0-3); EOSINOPHILS % (AUTO) 8.2 % (0-5); MONOCYTES % (AUTO) 13.7 % (4-12); Mean Corpuscular Hemoglobin 31.2 pg (27.0-35.0); NEUTROPHILS % (AUTO) 61.6 % (40-74); Platelet Count 260 bil/L (150-400)
[2017-03-11] MEDS ORDERED: magnesium PO (07:35)
[2017-03-11] MEDS ORDERED: Heparin 1,000 Unit/mL 10 mL Inj ONE (07:44)
[2017-03-11] MEDS ORDERED: Heparin 1,000 Units/500 mL NS Premix IV ONE (07:44)
[2017-03-11] MEDS ORDERED: Heparin 10,000 Unit/1,000 mL NS Premix IV ONE (07:44)
--- NOTE | 2017-03-11 08:00 | NUR ---
Dr Canales informed of patient's bradycardia( HR 36) with 2:1 block while at rest. Patient also reports possible need in the future for a root canal, there is some tenderness in tooth but does not have any swelling, no c/o fever. His GFR is borderline at 61. Dr Canales apprised.
[2017-03-11] MEDS ORDERED: fentaNYL-PF 50 mCg/mL 2 mL Inj ONE (08:25)
[2017-03-11] MEDS ORDERED: Atropine 1 mg/10 mL (Code) Syringe ONE (08:35)
[2017-03-11] MEDS ORDERED: Nitroglycerin 50,000 mcg/250 mL D5W Premix IV ONE (08:43)
[2017-03-11] MEDS ORDERED: Eptifibatide 20,000 mCg/10 mL Inj ONE (09:45)
[2017-03-11] MEDS ORDERED: Lidocaine 1%/Epi 1:100,000 30 mL MDV ONE (10:59)
--- NOTE | 2017-03-11 13:32 | NUR ---
Right groin dressing is saturated, on closer inspection, right arterial oozing despite prior lido/epi injection by Dr Canales.Light manual pressure held x 10 minutes. Gelfoam and gauze dressing applied with 5 lb weight over site.
--- NOTE | 2017-03-11 14:08 | NUR ---
Dr Canales updated on patient's blood pressure that had been trending upwards but most recent is 148/67.Pt also having continued right arterial track ooze. Redressed tewice with gelfoam/gauze and opsite dressing, 5lb sandbag to site.
--- NOTE | 2017-03-11 14:30 | NUR ---
report called to Karen page R.N. Right groin dressing is dry and intact. No c/o chest discomfort, Heart rate more consistently in the 50's to 60 range with less episodes of bradycardia into the 30's. NS continues at 100cc/hr.
--- NOTE | 2017-03-11 14:45 | NUR ---
Pt tx to room in stable condition, handoff at bedside to darlene page.Small amt of drainage noted on groin dressing. Sandbag in place.
--- NOTE | 2017-03-11 18:07 | CS94 ---
[address] [address] DIAGNOSTIC CARDIAC CATHETERIZATION PATIENT: JAMIE IVY : 1945 MR#: [id number] ADMIT: 03/11/2017 JOB ID: [id number] SERVICE DATE: 03/11/2017 PROCEDURES PERFORMED: 1. Coronary angiography. 2. Intravascular ultrasound (IVUS) of the left anterior descending artery. 3. Balloon angioplasty of the left anterior descending artery. 4. Stent placement to the left anterior descending artery. INDICATIONS: A gentleman with a history of coronary artery disease with chest pain with exertion. He had an abnormal stress test. He presents for further assessment by catheterization. DESCRIPTION OF PROCEDURE: Informed consent obtained. Patient brought to the catheterization laboratory. Bilateral groins were prepped and draped in the usual sterile fashion. The right femoral artery was anesthetized with lidocaine. Using a micropuncture kit and modified Seldinger technique, access was obtained and a long 5-Russian sheath was advanced. Next, a 5-Russian JL4 catheter was advanced over a wire and used to cannulate the left coronary artery and angiography was obtained. This catheter was removed and a 5-Russian JR4 catheter was advanced over a wire and used to cannulate the right coronary care and standard angiographic views were obtained. Given findings of a high-grade mid LAD lesion, intervention was planned. The current 5-Russian sheath was changed out for a 6-Russian sheath. Next, a 6-Russian CLS 3.5 guide was advanced over a wire and used to cannulate the left coronary artery and angiographic views were obtained. Heparin was given for anticoagulation. His ACTs were therapeutic throughout the case. A Net Zero AquaLife wire was advanced across the area of stenosis. A 2 x 12 mm balloon was advanced to the area of stenosis and inflated to nominal pressures. IVUS was advanced into the vessel. This revealed diffuse plaque distal to the area of stenosis with a vessel lumen which was not much more than 2-2.3 mm. In the area of stenosis there was an area of nonconcentric calcification. The vessel appeared close to 2.25 mm. Proximally the vessel was larger but also diffusely plaqued. Ultimately, a 2.25 x18 mm Xience stent was selected. This was placed in the artery with careful positioning and deployed initially at nine atmospheres it. A 2.25 mm noncompliant balloon was advanced to the area of stenting and this was inflated to higher atmospheres for post dilation in all segments. Followup views after stenting in and nitroglycerin revealed an excellent angiographic result with brisk flow in the artery and no evidence of residual stenosis or evidence of dissection. The case was ended. The angiographic view of the right femoral access site was reviewed prior to achieving hemostasis with a StarClose device. There were no complications. FINDINGS: CORONARIES: 1. Left main: This is a short vessel but it has no evidence for significant obstructive disease. 2. Circumflex artery: In the proximal vessel there is no evidence for obstructive disease. There is a first obtuse marginal branch which has an area of stenting which is widely patent. There is no evidence for significant disease in this segment. Continuation of the circumflex artery, it continues down with evidence of obstructive disease. There is a small branch of the terminal obtuse marginal branch which appears subtotaled and likely collateralized. 3. Left anterior descending artery: This vessel has mostly mild disease in its proximal segment. In the mid segment there is an area of high-grade stenosis estimated in the range of 99%. There is ANGELA-2 flow distally. As noted this was the area that was pre-dilated, assessed with IVUS, and was ultimately stented with a 2.25 x 18 mm Xience stent, and post dilated followup angiographic views revealed an excellent angiographic result. 4. Right coronary artery: This vessel is somewhat diffusely diseased, giving rise to a PDA, but has no evidence for significant obstructive lesions. HEMODYNAMICS: Aortic pressure 160/87. Heart rates in the 40s. IMPRESSION: 1. Evidence for a high-grade left anterior descending (LAD) mid left anterior descending (LAD) stenosis, the likely culprit for the patient's anginal symptoms. 2. Successful balloon angioplasty and intravascular ultrasound (IVUS) and stent placement to the mid left anterior descending (LAD). 3. No other significant obstructive disease appreciated. ASHANTI
--- NOTE | 2017-03-11 19:34 | PROCED ---
[address] [address] PROCEDURE NOTE PATIENT: JAMIE IVY : 1945 MR#: [id number] ADMIT: 03/11/2017 JOB ID: [id number] DATE OF SERVICE: 03/11/2017 POSTOPERATIVE DIAGNOSIS(ES): PREOPERATIVE DIAGNOSIS(ES): SURGEON: Julia Canales MD PROCEDURES PERFORMED: Central line placement. INDICATIONS: Need for central access. DESCRIPTION OF PROCEDURE: Informed consent was obtained prior to the procedure. The area over the right femoral vein was anesthetized with lidocaine. Using a micropuncture kit, access was obtained and a 4-Afghan sheath was advanced into the common femoral vein. The sheath was sutured in place. IMPRESSION: Successful central line placement in the common femoral vein.
[2017-03-12 02:47] LABS: Mean Corpuscular Hemoglobin 30.6 pg (27.0-35.0); Mean Corpuscular Volume 92.3 fL (81-100)
[2017-03-12] MEDS ORDERED: 0.9% Sodium Chloride 250 ML BOLUS IV PRN (03:25)
[2017-03-12] MEDS ORDERED: Ondansetron 2 mg/mL 2 mL Inj IVPUSH PRN (03:25)
[2017-03-12] MEDS ORDERED: HYDROcodone-APAP 5-325 mg Tablet PO PRN (03:25)
[2017-03-12 03:50] VITALS: BP 152/82; PULSE 53; RESP 16; O2SAT 97
--- NOTE | 2017-03-12 05:15 | NUR ---
Cardiac/ Groin site: Tele SR- Sbrady 50s IVCD. BP stable, pt denies any chest pain or discomfort. Per shift report pt had issues with oozing Right groin site which was a starclose- Injected with epi/ Lidocaine per shift report. Groin site remained stable overnight. Dressing C/D/I- no hematoma noted- distal pulses palpable. PRN [place] given this AM for some tenderness at groin site- pt currently sleeping comfortably. Care ongoing.
[2017-03-12 05:28] VITALS: PULSE 46
[2017-03-12] MEDS ORDERED: Pantoprazole 40 mg ER24 Tablet PO SCH (06:30)
[2017-03-12 07:49] VITALS: BP 147/83; PULSE 93; RESP 16; O2SAT 98
[2017-03-12 08:00] VITALS: PULSE 51
[2017-03-12] MEDS ORDERED: Fluticasone 0.05% 15 Spray/2 Gm 16 Gm Nasal Spray NASAL SCH (08:30)
[2017-03-12] MEDS ORDERED: MAGN250T29 PO (10:59)
[2017-03-12] MEDS ORDERED: CLOP75TA3 PO (10:59)
[2017-03-12] MEDS ORDERED: ASPI325T32 PO (10:59)
[2017-03-12] MEDS ORDERED: MAGN250T2 PO (11:01)
[2017-03-12] MEDS ORDERED: PANT40TA3 PO (11:02)
--- NOTE | 2017-03-12 11:45 | NUR ---
Discharge 0745 - Spoke to Dr. Canales who said she was going to place discharge orders and that he could discharge after his AM medications. 1145 - He discharged at this time. Before discharge he took all his belongings, telemetry was discontinued, and his two IVs were discontinued intact. Discussed with and have him the handwritten discharge paperwork (care notes, stent card, StarClose info brochure, instructions, and medication list). Dr. Canales already gave him his two new prescriptions. He thanked staff for their care and was taken by the [employer] to the front door where he said he would drive himself home.
== END 2017-03-12 11:47 | disposition home or self-care (01) ==
LOC: SOUO 00:28 → PCC 14:34 → SOUO 03-12 11:47
PROVIDERS: ATTEND Internal Medicine
DX: I25.119 Atherosclerotic heart disease of native coronary artery with unspecified angina pectoris (principal); I10 Essential (primary) hypertension; Z95.5 Presence of coronary angioplasty implant and graft; Z87.891 Personal history of nicotine dependence
CPT/HCPCS: 36415; 80048; 85025; 85027; 92978; 93005; 93454; 99152; 99153; C1725; C1753; C1760; C1769; C1874; C1887; C1894; C9600; J1200; J1644; J2060; J2250; J3010; Q9967

== ENCOUNTER 2017-03-17 | Day surgery (SDC) | payer MEDICARE ==
[~2017-03-17] VITALS: Ht 177.8 cm; Wt 78.3 kg
[2017-03-17] VITALS (15 sets, daily range): BP systolic 114–159; BP diastolic 52–96; PULSE 56–60; RESP 10–21; O2SAT 97–100
[~2017-03-17] MED LIST changes: -ASPI-973 PO; +ASPI325T32 PO; +CLOP75TA3 PO; -KRIL1CAP PO; -MAGN100T5 PO; +MAGN250T2 PO; -METO25TA6 PO; -OMEP20CA11 PO; +PANT40TA3 PO
--- NOTE | 2017-03-17 06:15 | NUR ---
ADMISSION NOTE MALE PT ADMITTED FOR PACEMAKER. DISCUSSED PLAN OF CARE WITH PT. SEE ADMIT AND FLOW SHEET
[2017-03-17 06:50] LABS: BASOPHILS % (AUTO) 1.9 % (0-3); EOSINOPHILS % (AUTO) 11.3 % (0-5); MONOCYTES % (AUTO) 12.7 % (4-12); Mean Corpuscular Hemoglobin 30.8 pg (27.0-35.0); Mean Corpuscular Volume 92.1 fL (81-100); NEUTROPHILS % (AUTO) 58.5 % (40-74); Platelet Count 257 bil/L (150-400)
[2017-03-17] MEDS ORDERED: 0.9% Sodium Chloride 1,000 ML IV PRN (06:57)
[2017-03-17] MEDS ORDERED: Vancomycin Inj 1,000 MG in IV Premix 1 EACH IV ONE (07:00)
[2017-03-17] MEDS ORDERED: CYAN500L3 SL (07:06)
[2017-03-17] MEDS ORDERED: [UNRECOGNIZED DRUG - OTHER] PO (07:06)
[2017-03-17] MEDS ORDERED: 0.9% Sodium Chloride 250 ML ONE (07:48)
[2017-03-17] MEDS ORDERED: Bupivacaine-MPF 0.5% 30 mL Inj ONE (07:48)
[2017-03-17] MEDS ORDERED: Heparin 10,000 Unit/1,000 mL NS Premix IV ONE (07:48)
[2017-03-17] MEDS ORDERED: Water for Injection 50 ML IV ONE (07:53)
[2017-03-17] MEDS ORDERED: Vancomycin 1,000 mg Inj ONE (07:53)
[2017-03-17] MEDS ORDERED: fentaNYL-PF 50 mCg/mL 2 mL Inj ONE ×2 (08:14→08:40)
--- NOTE | 2017-03-17 09:01 | CONS ---
[address] [address] CONSULTATION REPORT PATIENT: JAMIE IVY : 1945 MR#: [id number] ADMIT: 03/17/2017 JOB ID: [id number] DATE OF SERVICE: 03/17/2017 REQUESTING PHYSICIAN: Julia Canales MD REASON FOR CONSULTATION: AV block. PROBLEM LIST: 1. Coronary artery disease, status post PCI this past week by Dr. Canales, with stenting of his mid LAD. 2. Preserved LV systolic function by echocardiography in January of this year. 3. Chronic left bundle branch block. 4. Intermittent Mobitz II AV block. MEDICATIONS: 1. Aspirin 325 mg p.o. daily. 2. Clopidogrel 75 mg p.o. daily. 3. Vitamin B12. 4. Fluticasone. 5. Lisinopril 10 mg p.o. daily. 6. Magnesium 280 mg p.o. b.i.d. 7. Nitroglycerin sublingual p.r.n. 8. Protonix 40 mg p.o. daily. IDENTIFICATION AND HISTORY OF PRESENT ILLNESS: The patient is a pleasant, 71-year-old man, with preserved LV function, coronary artery disease, status post PCI to the mid LAD last week, chronic left bundle branch block, whom I met last week when he was here for his coronary intervention, send to the catheterization laboratory when he was identified to have bradycardia with heart rates in the 30s and 2:1 AV block. He is not on any heart rate lowering or AV chirag blocking medications. He describes fatigue and lightheadedness without syncope. He denies any chest pain, pressure, discomfort. IMPRESSION/RECOMMENDATION: The patient is a pleasant, 71-year-old man, with preserved left ventricular function, coronary artery disease, status post PCI, chronic left bundle branch block and now evidence of Mobitz II AV block with symptomatic bradycardia. He is not on any aggravating agents. I recommended a dual-chamber pacemaker implantation. I discussed the details with him including risks and benefits. Ultimately, he wishes to proceed. PLAN: Dual-chamber pacemaker implantation. Thank you very much for allowing me to participate in the care of this patient. Please call with questions. TIME SPENT: I spent 1 hour with this patient, coordinating care, reviewing his chart, and counseling. Greater than 50% spent in counseling.
[2017-03-17] MEDS: 0.9% Sodium Chloride 1,000 ML IV SCH ×2 (09:21→19:21)
[2017-03-17] MEDS ORDERED: Ondansetron 2 mg/mL 2 mL Inj IVPUSH PRN (09:25)
--- NOTE | 2017-03-17 09:45 | NUR ---
POST PROCEDURE NOTE RETURNED FROM PARTY HOST/HOSTESS. SEE FLOW SHEET
--- NOTE | 2017-03-17 10:57 | OP ---
[address] [address] OPERATIVE REPORT PATIENT: JAMIE IVY : 1945 MR#: [id number] ADMIT: 03/17/2017 JOB ID: [id number] DATE OF SURGERY: 03/17/2017 PREOPERATIVE DIAGNOSIS(ES): Mobitz II atrioventricular block. POSTOPERATIVE DIAGNOSIS(ES): Mobitz II atrioventricular block. PROCEDURES PERFORMED: 1. Dual-chamber pacemaker implantation. 2. Fluoroscopy. SURGEON: Christoph Feliciano MD, electrophysiology WOOD PATTERNMAKER: Antonio Velasquez. IMPLANTED DEVICES: 1. [employer] pulse generator, model AP0961, serial #[id number]. 2. Right atrial lead [employer], IT7539 cm, serial #[id number]. 3. RV lead [employer], LPA 1258 cm, serial #[id number]. ANESTHESIA: Bolus dosing of Versed and fentanyl where used for appropriate level of sedation. INDICATION: The patient is a pleasant 71-year-old man with coronary artery disease, status post PCI preserved LV function, chronic left bundle branch block and documented Mobitz II AV block. After discussion of risks and benefits of pacemaker implantation, he opted to proceed. PROCEDURAL DESCRIPTION: Following informed consent, the patient was taken to the EP laboratory where he was prepped and draped in usual sterile fashion in the left infraclavicular region with 40 cc of a 50/50 mixture of bupivacaine and lidocaine. Once adequate anesthesia had been achieved, a 3 cm incision was performed 2 cm carried down to the pectoral fascia. A pocket was then fashioned using a combination of electrocautery and blunt dissection. Once adequate sedation achieved, access was gotten the left extremity with micropuncture needle twice to deploy two 0.035, 3 mm J guidewires. Over the first of these, an 8-Montenegrin tear-away sheath was advanced. Once the guidewire was removed, an active fixation of the RV outflow tract and ultimately the RV apex. The lead was affixed in position using its associated active fixation screw. It was connected to the external analyzer and demonstrated appropriately sensed R waves, prescription at 10 V. There was no evidence of diaphragmatic stimulation. Attention was now paid to the right atrial lead over the other previously deployed J guidewire, another 8-Mont[place]grin tear-away sheath was advanced. Once the guidewire was removed, active fixation lead was then inserted into the right atrial appendage. It was affixed in position using associated active fixation screw and connected to the external analyzer and demonstrated appropriately sensed P waves, impedance, capture 0 seconds 10 V and there was no evidence of diaphragmatic stimulation. Once the position and redundancy of both leads had been confirmed in multiple fluoroscopic views, the leads were anchored to the pre-pectoralis fascia using their associated anchoring sleeves and 2 Ethibond sutures. The pocket was copiously irrigated with antibiotic solution. The leads were connected to a generator and this was placed in the pocket using 1-0 Ti-Cron suture. The incision was then closed with running layers of absorbable suture. The wound was dressed with skin adhesive and a small dressing at the end of the procedure. The needle, sponge, and instrument counts were correct. COMPLICATIONS: None. ESTIMATED BLOOD LOSS: Negligible. DEVICE MEASURE DATA: 1. Right atrial lead 2.6 mV, 580 ohms, 0.75 V at 0.4 msec. 2. RV lead greater than 12 mV, 600 ohms, 0.75 V at 0.4 msec. FINAL PROGRAM PARAMETERS: DDDR 60-130 beats per minute with VIP on. IMPRESSION: Successful dual-chamber pacemaker implantation. PLAN: 1. Stat portable chest x-ray. 2. PA and lateral chest x-ray in the morning. 3. IV Ancef Keflex x7 days. 4. Wound check in one week. ATTESTATION STATEMENT: IChristoph MD, electrophysiology, was supervised/performed all aspects of this procedure.
--- NOTE | 2017-03-17 12:02 | DRSVH ---
PROCEDURE: X-RAY CHEST ONE VIEW, PORTABLE ([id number]) INDICATIONS: For new leads placed TECHNIQUE: One view of the chest was acquired. COMPARISON: [facility], CR, XR CHEST 1VW (PORTABLE), 02/19/2017, 16:48. FINDINGS: Surgical changes and devices: A dual lead left-sided pacer device has been placed. Lungs and pleura: No pleural effusions or pneumothorax. Lungs are clear, yet hyperexpanded. Mediastinum: The cardiac contours are within normal limits. The aorta demonstrates calcification and tortuosity. Bones and chest wall: Age-appropriate bony degenerative changes are seen. No suspicious bony lesion s. Overlying soft tissues appear unremarkable. IMPRESSION: Interval placement of a dual lead pacer device. Hyperexpanded lungs. Dictated by: Triston Sprague M.D. on 03/17/2017 at 11:59 Approved by: Triston Sprague M.D. on 03/17/2017 at 12:00
--- NOTE | 2017-03-17 14:06 | NUR ---
TRANSFER NOTE UP IN ROOM, TOLERATED WELL. REPORT CALLED. TO [facility]
--- NOTE | 2017-03-17 14:30 | NUR ---
transfer from [facility] Pt arrived on unit from [facility] with TARA Daniel. Pt is alert and orient X4. VS WNL: VPaced 60. Pt c/o 4/10 incisional pain. Administered 10 norco. Mild swelling distal to incision/dressing with very small dried drainage that this RN marked. Pt has arm in sling. Ordered dinner and is resting.
[2017-03-17] MEDS: HYDROcodone-APAP 5-325 mg Tablet PO PRN ×2 (14:41→19:58)
--- NOTE | 2017-03-17 16:54 | NUR ---
Plavix Withheld evening plavix dose patient already took it this morning
[2017-03-17] MEDS: CeFAZolin Inj 1 GM in IV Premix 1 EACH IV SCH (18:55)
[2017-03-18 00:10] VITALS: BP 157/87; PULSE 74; RESP 18
[2017-03-18] MEDS: HYDROcodone-APAP 5-325 mg Tablet PO PRN (00:11)
[2017-03-18] MEDS: CeFAZolin Inj 1 GM in IV Premix 1 EACH IV SCH (00:11)
[2017-03-18 00:54] VITALS: PULSE 60
[2017-03-18] MEDS: 0.9% Sodium Chloride 1,000 ML IV SCH (01:40)
[2017-03-18 05:06] VITALS: BP 142/75; PULSE 80; RESP 18; O2SAT 96
--- NOTE | 2017-03-18 05:49 | NUR ---
Pain medication Patient voiced concern about taking pain medication and driving self home. This Rn explain the importance of pain management and offered Tylenol as an alternative to the narcotic. Pain is at 4/10, tolerable, prior to Tylenol administration, will continue to monitor. Patient was also made aware that Imaging will be arriving between [id number] . Care continues.
[2017-03-18] MEDS ORDERED: Pantoprazole 40 mg ER24 Tablet PO SCH (07:30)
[2017-03-18] MEDS ORDERED: Fluticasone 0.05% 15 Spray/2 Gm 16 Gm Nasal Spray NASAL SCH (08:30)
[2017-03-18 08:43] VITALS: BP 155/76; PULSE 83; RESP 18; O2SAT 93
--- NOTE | 2017-03-18 08:57 | PCM.DIMED ---
Discharge Instructions Date of Service Mar 18, 2017 Dates of Hospitalization Discharge Diagnosis Discharge Diagnosis Symptomatic Bradycardia Sinus Bradycardia Mobitz II, 2nd Degree AV Block Coronary Artery Disease Left Bundle Branch Block Diet Discharge Diet: Heart Healthy Activity Discharge Activity: Other (Keep incision dry one day. Do not extend left elbow high above shoulder for one month. Do not lift, push or pull more than 10 lbs with the left arm for one month.) Call your provider Call your provider for: Fever or Chills, Bleeding, Excessive diarrhea Patient Instructions Follow-up in: 1 week Mid-level Provider (F9): Aiden Stallworth PA-C Follow-up with Mid-level in: 6 weeks Aiden Stallworth PA-C Mar 18, 2017 08:57
[2017-03-18] MEDS ORDERED: CEPH500C PO (09:12)
--- NOTE | 2017-03-18 09:43 | DIS ---
[address] [address] DISCHARGE SUMMARY PATIENT: JAMIE IVY : 1945 MR#: [id number] ADMIT: 03/17/2017 JOB ID: [id number] DIS: 03/18/2017 DATE OF SERVICE: 03/18/2017 REASON FOR ADMISSION: Pacemaker implant. CHIEF COMPLAINT: Fatigue and lightheadedness. BRIEF HISTORY: The patient is a pleasant 71-year-old man with a preserved LV function, a history of coronary artery disease, status post PCI to the mid LAD recently and he also has chronic left bundle branch block, as well as sinus bradycardia. Also recorded were periods of 2:1 AV block and heart rates in the 30s. He was advised of the utility of a pacemaker and wished to proceed with it. COURSE IN HOSPITAL: The patient was admitted to the [facility] and taken to the manufacturing lab technician, where he received the dual-chamber pacemaker without incident. He was taken back to the [facility] for recovery from sedation and then transferred up to the third floor [facility] for overnight observation and telemetry monitoring. In the morning, he felt well for discharge home and was not having much pain at the pacemaker site. The site is closed and dry and there is a small hematoma, but no bleeding. Device evaluation showed excellent capture and sensing thresholds for both leads. He is paced 96% of the time in the atrium and 1.3% in the ventricle. The chest x-ray showed good lead positions and no pneumothorax. He felt well for discharge home and was not having shortness of breath, lightheadedness or angina. DISPOSITION: The patient is discharged home in good condition with a followup appointment at the [facility] Cardiology office in one week. He was asked not to extend his left elbow above his shoulder for one month and not to lift, push or pull more than 10 pounds with the left arm for one month. He will follow his heart-healthy diet and take medications as prescribed. DISCHARGE MEDICATIONS: 1. Cephalexin 500 mg b.i.d. 2. Aspirin 325 mg daily. 3. Clopidogrel 75 mg daily. 4. Vitamin B12 at 500 mcg sublingual daily. 5. Fluticasone 2 sprays nasally q.a.m. 6. Lisinopril 10 mg daily. 7. Magnesium 250 mg b.i.d. 8. Nitroglycerin sublingual 0.4 mg q.5 minutes p.r.n. chest pain. 9. Pantoprazole DR 40 mg daily. 10. Latero-Marielena. FINAL DIAGNOSES: 1. Symptomatic bradycardia from sinus bradycardia and Mobitz II second-degree AV block. 2. Coronary artery disease left bundle branch block.
[2017-03-18 10:06] VITALS: PULSE 60
--- NOTE | 2017-03-18 10:43 | DRSVH ---
PROCEDURE: X-RAY CHEST, TWO VIEWS ([id number]) INDICATIONS: For new lead placement TECHNIQUE: 2 views of the chest were acquired. COMPARISON: [facility], CR, XR CHEST 1VW (PORTABLE), 02/19/2017, 16:48. [facility], CR, XR CHEST 1VW (PORTABLE), 03/17/2017, 10:26. FINDINGS: Surgical changes and devices: Stable positioning of dual chamber left cardiac pacemaker.. Lungs and pleura: No pleural effusions or pneumothorax. Lungs are clear, aside from mild bilateral interstitial prominence.. Mediastinum: Mediastinal contours are normal. Heart size is normal. Bones and chest wall: No suspicious bony abnormalities. Soft tissues appear unremarkable. IMPRESSION: Stable exam post pacer placement. Dictated by: Alec Bennett A Interpreted: Júnoir Tomlinson MD on 03/18/2017 at 10:26 Approved by: Júnior Tomlinson M.D. on 03/18/2017 at 10:41
[2017-03-18 10:56] VITALS: BP 132/75; PULSE 65; RESP 18; O2SAT 97
--- NOTE | 2017-03-18 11:14 | NUR ---
Discharge Pt d/c home via wc by an aide at this time. Pt denied pain. VSS. IV x2 d/cd. Pacer incision site open to air, no drainage noted. Discharge info discussed with pt, emphasis made on being compliant with sling and 10lb wt limit of L hand. All personal belongings left with pt.
== END 2017-03-18 11:10 | disposition home or self-care (01) ==
LOC: SOUO → EDSTATUS 13:04 → MPC 14:28 → SOUO 03-18 11:10
PROVIDERS: ATTEND Internal Medicine Cardiovascular Disease
DX: I44.1 Atrioventricular block, second degree (principal); I44.7 Left bundle-branch block, unspecified; I25.10 Atherosclerotic heart disease of native coronary artery without angina pectoris; Z95.5 Presence of coronary angioplasty implant and graft; Z79.82 Long term (current) use of aspirin; Z79.02 Long term (current) use of antithrombotics/antiplatelets
CPT/HCPCS: 33208; 36415; 71010; 71020; 80048; 85025; 85610; 93005; 99152; 99153; C1769; C1785; C1892; C1898; J0131; J0690; J1644; J2250; J3010; J3370; J7050